=== PATIENT | male | born 1950 | race Caucasian/White ===

== ENCOUNTER 2018-03-12 21:42 | Emergency (ER) | payer MEDICARE ==
[2018-03-12] MEDS ORDERED: ACET-1718 PO (21:52)
--- NOTE | 2018-03-12 21:52 | ER Report ---
History and Physical Time Seen By MD: 21:52 HPI/ROS CHIEF COMPLAINT: Contact dermatitis, odynophagia HISTORY OF PRESENT ILLNESS: Patient is a 67-year-old male here with complaints of diffuse rash which the patient suspects it is caused by poison oak which he was exposed to on March 02 in [place]. Patient reports that he has had persistent pruritus and discomfort and now has difficulty swallowing with tender cervical lymphadenopathy. Patient is camping nearby decided to come to the emergency department due to his difficulty swallowing. Patient is otherwise well-appearing, afebrile, normotensive and in no acute distress. REVIEW OF SYSTEMS: Constitutional: No fever, no chills. Eyes: No discharge. ENT: + sore throat, + scant exudates, + cervical tender lymphadenopathy Cardiovascular: No chest pain, no palpitations. Respiratory: No cough, no shortness of breath. Gastrointestinal: No abdominal pain, no vomiting. Genitourinary: No hematuria. Musculoskeletal: No back pain. Skin: + pruritic rash diffuse Neurological: No headache. Allergies: Coded Allergies: No Known Drug Allergies (Unverified , 03/12/18) Home Meds Active Scripts Prednisone (PREDNISONE) 20 Mg Tablet, 20 MG PO QDAY for 21 Days, #42 TAB Take three tabs for 7 days,two tabs for 7 days, 1 tab for 7 days Prov:MAYI MARIN DO 03/12/18 Reported Medications Acetaminophen With Codeine # 3 (ACETAMINOPHEN-COD #3 TABLET) 1 Each Tablet, 1 EACH PO Q4-6H, TAB 03/12/18 Constitutional Vital Sign - Last 24 Hours 03/12/18 03/12/18 03/12/18 03/12/18 21:46 21:49 21:57 22:12 Temp 98.2 Pulse 71 72 Resp 16 B/P (MAP) 153/91 (111) 153/91 Pulse Ox 93 94 94 O2 Delivery Room Air 03/12/18 03/12/18 03/12/18 03/12/18 22:23 22:27 22:30 22:42 Pulse 67 60 B/P (MAP) 141/93 (109) 140/92 (108) Pulse Ox 93 93 03/12/18 03/12/18 22:57 23:00 Pulse 62 B/P (MAP) 144/90 (108) Pulse Ox 91 Physical Exam General Appearance: The patient is alert, has no immediate need for airway protection and no signs of toxicity. + uncomfortable Eyes: Pupils equal and round no pallor or injection. ENT, Mouth: Mucous membranes are moist, + scant exudates, + tender cervical lymphadenopathy Respiratory: There are no retractions, lungs are clear to auscultation. Cardiovascular: Regular rate and rhythm. [ ] Gastrointestinal: Abdomen is soft and non tender, no masses, bowel sounds normal. Neurological: No focal deficits Skin: + diffuse pruritic rash Musculoskeletal: Neck is supple non tender. Extremities are nontender, nonswollen and have full range of motion. DIFFERENTIAL DIAGNOSIS: After history and physical exam differential diagnosis was considered for contact dermatitis, mononucleosis, strep pharyngitis, viral exanthem Medical Decision Making Data Points Laboratory Hematology Test 03/12/18 22:20 03/12/18 22:41 Group A Streptococcus Screen Negative (NEGATIVE) Monoscreen Negative (NEGATIVE) Chemistry Test 03/12/18 22:20 03/12/18 22:41 Group A Streptococcus Screen Negative (NEGATIVE) Monoscreen Negative (NEGATIVE) Microbiology Microbiology Date/Time Source Procedure Growth Status 03/12/18 22:20 Throat Group A Streptococcus Screen (FERNANDA) - Preliminary NORMAL SO FAR, CULTURE SET UP LATE, C... Resulted ED Course/Re-evaluation ED Course Patient is a 67-year-old male who arrives with complaints of contact dermatitis suspected to be from poison oak, anterior cervical lymphadenopathy and odynophagia. Symptoms started on March 02 at time of exposure. Patient complains of worsening symptoms especially with difficulty swallowing. Strep swab was negative, mono test was negative as well. Patient was started on prednisone 21 day course due to concern for rebound rash with contact dermatitis per up-to- date guidelines. Patient was given 1st dose and updated regarding the findings and voiced understanding. Decision to Disposition Date: Mar 12, 2018 Decision to Disposition Time: 23:20 Depart Departure Latest Vital Signs Vital Signs Date Time Temp Pulse Resp B/P (MAP) Pulse Ox O2 Delivery O2 Flow Rate FiO2 03/12/18 23:00 144/90 (108) 03/12/18 22:57 62 91 03/12/18 21:49 98.2 16 Room Air Impression: Primary Impression: Contact dermatitis Condition: Improved Disposition: HOME OR SELF-CARE New Scripts Prednisone (PREDNISONE) 20 Mg Tablet 20 MG PO QDAY for 21 Days, #42 TAB Take three tabs for 7 days,two tabs for 7 days, 1 tab for 7 days Prov: MAYI MARIN DO 03/12/18 Patient Instructions: Contact Dermatitis (ED), Prednisone (By mouth) Additional Instructions: Please take 3 tablets daily for 7 days, 2 tablets for 7 days, and one tablet for 7 days of the prednisone for contact dermatitis. Please return promptly should develop worsening pain, difficulty swallowing, fevers, weakness. MAYI MARIN DO Mar 12, 2018 21:52
[2018-03-12] MEDS ORDERED: predniSONE 20 MG TAB PO ONE (22:10)
[2018-03-12] MEDS ORDERED: PRED20TA6 PO (22:13)
[2018-03-12 23:00] VITALS: BP 144/90
== END 2018-03-12 23:15 | disposition home or self-care (01) ==
LOC: ER 22:02
DX: L25.5 Unspecified contact dermatitis due to plants, except food (principal)
CPT/HCPCS: 36415; 86308; 87081; 87880; 99283; J7512